=== PATIENT | male | born 1990 | race Hispanic/Latino ===

== ENCOUNTER 2018-06-25 12:12 | Emergency (ER) | payer BC ==
[2018-06-25 12:45] VITALS: BP 150/96; PULSE 86; RESP 16; TEMP 98.1; O2SAT 99
--- NOTE | 2018-06-25 15:46 | ED PDOC ---
HPI: Back Time Seen by Provider: 06/25/18 13:02 Chief Complaint (Nursing): Back Pain Additional Complaint(s): 27 y/o with no PMH presents to the ED with father c/o back pain x 5 days. Pain begins in right lower back and radiates down the back of his right leg with intermittent paresthesias and numbness. Took vicodin this morning for pain without relief. Pt is unable to sit or walk per baseline secondary to severe pain. Patient states that he hurt his back on Saturday during a sexual encount er. States that he was due to have an MRI today but was having severe pain and was told by his primary doctor to cancel the MRI and come to the ER. Requesting MRI to be done here in the Emergency Department. Denies fevers, chills, bowel/bladder incontinence, saddle anesthesias, abdominal pain, weakness. Past Medical History Reviewed: Historical Data, Nursing Documentation, Vital Signs Vital Signs: Last Vital Signs Temp 98.1 F 06/25/18 12:41 Pulse 86 06/25/18 12:41 Resp 16 06/25/18 12:41 BP 150/96 H 06/25/18 12:41 Pulse Ox 99 06/25/18 12:41 - Medical History PMH: Back Problems - Family History Family History: States: Unknown Family Hx - Allergies Allergies/Adverse Reactions: Allergies Allergy/AdvReac Type Severity Reaction Status Date / Time No Known Allergies Allergy Verified 06/25/18 12:46 Physical Exam - Reviewed Nursing Documentation Reviewed: Yes Vital Signs Reviewed: Yes - Physical Exam Appears: Positive for: Non-toxic, Uncomfortable (secondary to pain) Head Exam: Positive for: ATRAUMATIC, NORMAL INSPECTION Skin: Positive for: Normal Color, Warm, Dry Eye Exam: Positive for: Normal appearance, EOMI Extremity: Positive for: Normal ROM (decreased at lumbar spine and right hip secondary to pain) Neurologic/Psych: Positive for: Alert, Oriented, Gait (steady, limping) Comments: Unable to complete physical exam secondary to patient and father leaving emergency department prior to full evaluation and treatment. - ECG O2 Sat by Pulse Oximetry: 99 Medical Decision Making Medical Decision Making: Initial Plan: * Pain control * Discuss imaging options with Dr. Perez Patient and father stated that they wanted to leave because they are not able to have an MRI in the ER. Patient stated that he did not want medications for pain. Patient walked out with father with steady gait. No acute distress. Disposition - Clinical Impression Clinical Impression: Back pain - Disposition Disposition: Left W/O Treatment Disposition Time: 13:15 Condition: STABLE Forms: [employer] ([place])
== END 2018-06-25 13:15 | disposition left against medical advice (07) ==
LOC: H.ER 12:12
DX: M54.9 Dorsalgia, unspecified (principal)